=== PATIENT | male | born 1945 | race Caucasian/White ===

== ENCOUNTER 2016-08-20 17:18 | Emergency (ER) | payer OTHER ==
[~2016-08-20 17:18] MED LIST: ALBU8I INH; ASPI81TA82 PO; CARD120C4 PO; CHOL1CAP6 PO; COZA100T PO; HYDR-2768 PO; ONDA4 PO; SYMB160A INH
[2016-08-20 17:22] VITALS: BP 162/86; PULSE 116; RESP 14; TEMP 98.2; O2SAT 96
[2016-08-20] MEDS ORDERED: ALBUAER3 INH (18:12)
[2016-08-20] MEDS ORDERED: HYDR25TA5 PO (18:12)
[2016-08-20] MEDS ORDERED: SYMB160A INH (18:12)
[2016-08-20] MEDS ORDERED: ALBU.5I NEB (18:12)
[2016-08-20] MEDS ORDERED: LOSA100T PO (18:12)
[2016-08-20] MEDS ORDERED: ASPI1TAB69 PO (18:12)
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
[2016-08-20] MEDS ORDERED: CYCL1TAB29 PO (18:47)
[2016-08-20 18:50] VITALS: BP 138/85; PULSE 102; RESP 17; O2SAT 97
== END 2016-08-20 19:05 | disposition home or self-care (01) ==
LOC: NETRI 17:18
DX: S16.1XXA Strain of muscle, fascia and tendon at neck level, initial encounter (principal); E78.00 Pure hypercholesterolemia, unspecified; I10 Essential (primary) hypertension; J44.9 Chronic obstructive pulmonary disease, unspecified; V43.52XA Car driver injured in collision with other type car in traffic accident, initial encounter; Y93.29 Activity, other involving ice and snow; Y92.410 Unspecified street and highway as the place of occurrence of the external cause; Y99.9 Unspecified external cause status
CPT/HCPCS: 99283

== ENCOUNTER 2016-08-21 19:14 | Emergency (ER) | payer OTHER ==
[~2016-08-21] VITALS: Ht 170.2 cm; Wt 90.0 kg
[~2016-08-21 19:14] MED LIST changes: +ALBU.5I NEB; +ALBUAER3 INH; +ASPI1TAB69 PO; +CYCL1TAB29 PO; +HYDR25TA5 PO; +LOSA100T PO
[2016-08-21 19:18] VITALS: BP 184/106; PULSE 119; RESP 16; TEMP 98.1; O2SAT 97
== END 2016-08-22 00:46 | disposition left against medical advice (07) ==
LOC: NED 19:14
DX: Z53.21 Procedure and treatment not carried out due to patient leaving prior to being seen by health care provider (principal)
CPT/HCPCS: 99281